=== PATIENT | female | born 1995 | race Two or more races ===

== ENCOUNTER 2024-03-06 18:14 | Observation (INO) | payer BC, SELFPAY ==
[2024-03-06 17:51] VITALS: RESP 16; RESP 99; TEMP 37.1
[2024-03-06 18:12] VITALS: BMI 37.3
[2024-03-06 18:21] VITALS: BP 115/72; PULSE 81
[2024-03-06 19:21] LABS: Collection Type, Urine Voided
[2024-03-06] MEDS: ACETAMINOPHEN 325 MG TABLET 650 MG PO (19:30)
[2024-03-06 19:36] LABS: Bilirubin,Urine Negative (Negative); Blood,Urine Negative (Negative); Clarity,Urine Clear (Clear/Hazy); Color,Urine Lt-Yellow (Lt Yel-Yel); Culture Indicated,Urine Not Indicated; Glucose, Urine Negative (Negative); Ketones,Urine Negative (Negative); Leukocyte Esterase,Urine Negative (Negative); Nitrite,Urine Negative (Negative); Protein,Urine Trace (Neg - Trace); RBC,Urine 5 /hpf (0-3); Specific Gravity,Urine 1.025 (1.001-1.035); Squamous Epithelial Cell,Urine 10 /hpf (0-5); Urobilinogen,Urine Negative mg/dL (0.0-1.0); WBC,Urine 3 /hpf (0-5)
[2024-03-06 20:02] VITALS: BP 113/71; PULSE 74
[2024-03-06 20:40] LABS: FFN Specimen Descripton Clr Colrless Aqueous; Fetal Fibronectin Negative (Negative)
== END 2024-03-06 21:03 | disposition home or self-care (01) ==
LOC: S4S1 18:14 → S4SX 18:14
PROVIDERS: Admitting Provider Specialist; Referring Provider Specialist; Visit Provider Specialist
DX: O26.892 Other specified pregnancy related conditions, second trimester (principal); R10.2 Pelvic and perineal pain; Z3A.27 27 weeks gestation of pregnancy
CPT/HCPCS: 59025; 59899; 81001; 82731; A9270

== ENCOUNTER 2024-03-14 19:06 | Outpatient (CLI) | payer BC, SELFPAY ==
[2024-03-14] VITALS (10 sets, daily range): BP systolic 128; BP diastolic 78; PULSE 77–92; RESP 18–97; TEMP 36.9; O2SAT 97–99; BMI 36.3
[2024-03-14] MEDS: BETAMET ACET/BETAMET NA PH (Celestone) 6 MG/ML VIAL 12 MG IM (20:23)
--- NOTE | 2024-03-14 21:00 | PC.NURSE ---
Patient discharged home with SOF. Vitals WNL. NST reactive. Patient given 1st dose of betamethasone at 2022. Patient given discharge instructions and precautions including reasons to return. Patient instructed to follow up with hospital for second dose of betamethasone tomorrow at 1999. Patient verbalizes understanding, all questions answered and encouraged.
== END 2024-03-14 20:28 | disposition home or self-care (01) ==
LOC: S4S1 19:07 → S4SX 19:08
PROVIDERS: Referring Provider Specialist; Visit Provider Specialist
DX: Z34.03 Encounter for supervision of normal first pregnancy, third trimester (principal); Z36.89 Encounter for other specified antenatal screening; Z3A.28 28 weeks gestation of pregnancy
CPT/HCPCS: 59025; 96372; J0702

== ENCOUNTER 2024-03-15 20:17 | Outpatient (CLI) | payer BC, SELFPAY ==
[2024-03-15 20:22] VITALS: BP 117/61; PULSE 96; RESP 18; RESP 98; TEMP 36.7
[2024-03-15 20:23] VITALS: BP 117/61; PULSE 94; PULSE 95; RESP 18; TEMP 36.7; O2SAT 97
[2024-03-15 20:25] VITALS: BMI 35.9
[2024-03-15 20:28] VITALS: PULSE 98; O2SAT 97
[2024-03-15 20:33] VITALS: PULSE 92; O2SAT 98
[2024-03-15 20:38] VITALS: PULSE 97; O2SAT 97
[2024-03-15] MEDS: BETAMET ACET/BETAMET NA PH (Celestone) 6 MG/ML VIAL 12 MG IM (20:44)
--- NOTE | 2024-03-15 21:11 | PC.NURSE ---
Patient discharged home with SOF. Vitals WNL. NST reactive. Patient given second dose of betamethasone at 2042. Patient given discharge education including precautions and reasons to return. Patient instructed to follow up with office on Sunday for follow up instructions. Patient verbalizes understanding, all questions answered and encouraged.
== END 2024-03-15 21:01 | disposition home or self-care (01) ==
LOC: CNST 20:18 → S4SX 20:19
PROVIDERS: Referring Provider Specialist; Visit Provider Specialist
DX: Z34.03 Encounter for supervision of normal first pregnancy, third trimester (principal); Z36.89 Encounter for other specified antenatal screening; Z3A.28 28 weeks gestation of pregnancy
CPT/HCPCS: 59025; 96372; J0702

== ENCOUNTER 2024-05-19 10:01 | Observation (INO) | payer BC, SELFPAY ==
[2024-05-19] VITALS (32 sets, daily range): BP systolic 111–119; BP diastolic 71–81; PULSE 68–98; RESP 18–99; TEMP 36.7; O2SAT 97–100; BMI 37.7
--- NOTE | 2024-05-19 11:09 | ESHP_ITS ---
RE: CORNELL REID : [id number] DATE OF ADMISSION: 05/19/2024 HISTORY OF PRESENT ILLNESS: This is a 28-year-old 1, para 0 with intrauterine at 38 weeks and 1 day who presents to labor and delivery for PIH evaluation. The patient was seen in the office today and was noted to have elevated blood pressures of 140s/90s. The patient reports swelling in her lower extremities. She denies any headache, change in vision or right upper quadrant pain. She denies any swelling in her face or hands. Her ultrasound today shows breech presentation. She has lost 1 pound since her last visit. Her urine protein is negative. She reports normal movement. She denies any leaking or bleeding. She reports occasional infrequent contractions. ALLERGIES: NO KNOWN DRUG ALLERGIES. MEDICATIONS: 1. multivitamin 1 tablet p.o. daily. 2. Omeprazole 20 mg 1 tablet p.o. daily p.r.n. heartburn. PAST MEDICAL HISTORY: Mild systolic hypertension, gastroesophageal reflux disease, threatened labor, receiving betamethasone on 03/14 and 03/15. SOCIAL HISTORY: She denies alcohol, drug use or smoking. : Noncontributory. REVIEW OF SYSTEMS: She denies any chest pain, palpitations, cough, fever, shortness of breath, or lower extremity pain. PHYSICAL EXAMINATION: VITAL SIGNS: Blood pressure 145/93, heart rate 88, respirations 18, temperature 98.2. HEENT: Oropharynx and sclerae are clear. LUNGS: Clear to auscultation bilaterally. HEART: Regular rate and rhythm. ABDOMEN: Gravid. Term size. Breech presentation. EXTREMITIES: Nontender. SKIN: No gross rashes or lesion. NEUROLOGIC: No focal deficit. ASSESSMENT: Intrauterine at 38 weeks and 1 day, borderline chronic hypertension, rule out superimposed preeclampsia, breech presentation. PLAN: Prolonged NST, PIH labs, remain n.p.o. Informed consent was obtained. The patient was made aware of the risks, complications, alternatives, and benefits of delivery. She agrees to proceed with delivery if needed. DT: 09:49:16 TT: 11:06:00 Ref: [id number] - TID: [id number]
[2024-05-19 11:51] LABS: Collection Type, Urine Clean Catch
[2024-05-19 12:00] LABS: Basophils % (Auto) 0 % (0-2.5); Eosinophils % (Auto) 0 % (0-10); Hematocrit 39.4 % (36.0-46.0); Immature Granulocytes % (Auto) 1 % (0-0); Immature Granulocytes Auto 0.05 Thou/mm3 (0.00-0.00); Lymphocytes # (Auto) 1.4 Thou/mm3 (1.0-4.8); Lymphocytes % (Auto) 15 % (10-50); Mean Corpuscular Hemoglobin 27.3 pg (25.0-35.0); Mean Corpuscular Volume 83 fL (80-100); Monocytes # (Auto) 0.6 Thou/mm3 (0.0-0.8); Monocytes % (Auto) 6 % (0-12); Neutrophils # (Auto) 7.4 Thou/mm3 (1.8-7.7); Neutrophils % (Auto) 78 % (37-80); Nucleated Red Blood Cell % 0 /100 WBC (0); Platelet Count 210 Thou/mm3 (140-440); RDW Standard Deviation 39.8 fL (36.4-46.3); Red Blood Count 4.77 Miln/mm3 (4.00-5.20); White Blood Count 9.5 Thou/mm3 (3.6-11.0)
[2024-05-19 12:03] LABS: Bilirubin,Urine Negative (Negative); Blood,Urine Negative (Negative); Clarity,Urine Clear (Clear/Hazy); Color,Urine Lt-Yellow (Lt Yel-Yel); Glucose, Urine Negative (Negative); Ketones,Urine Negative (Negative); Leukocyte Esterase,Urine Negative (Negative); Nitrite,Urine Negative (Negative); PH,Urine 6.5 (5.0-7.0); Protein,Urine Negative (Neg - Trace); RBC,Urine 2 /hpf (0-3); Specific Gravity,Urine 1.023 (1.001-1.035); Squamous Epithelial Cell,Urine 12 /hpf (0-5); Urobilinogen,Urine Negative mg/dL (0.0-1.0); WBC,Urine 3 /hpf (0-5)
[2024-05-19 12:15] LABS: Fibrinogen 470 mg/dL (175-375); INR 0.9 (0.9-1.3); Partial Thromboplastin Time 25.2 Seconds (22.0-36.0); Prothrombin Time 10.1 Seconds (9.0-12.2)
[2024-05-19 12:33] LABS: Alanine Aminotransferase 10 U/L (10-49); Albumin, Serum 3.6 gm/dL (3.5-5.0); Albumin/Globulin Ratio 1.4 (1.2-2.2); Alkaline Phosphatase 134 U/L (46-116); Anion Gap 10 (7-16); Aspartate Amino Transferase 14 U/L (0-34); BUN/Creatinine Ratio 12 Ratio (12-20); Bilirubin,Total 0.3 mg/dL (0.3-1.2); Blood Urea Nitrogen 7 mg/dL (9-23); Calcium 8.9 mg/dL (8.3-10.6); Calcium (Corrected) 9.2 mg/dL (8.5-10.1); Carbon Dioxide 20.5 mMol/L (20.0-31.0); Chloride 106 mMol/L (98-107); Creatinine (Component) 0.6 mg/dL (0.6-1.3); Estimated Creatinine Clearance 157.2 mL/min (>60); Globulin 2.6 gm/dL (2.3-3.5); Glucose 72 mg/dL (74-106); LDH (Lactate Dehydrogenase) 175 U/L (120-246); Osmolality,Calculated 268 (275-295); Potassium 3.8 mMol/L (3.4-5.1); Sodium 136 mMol/L (136-145); Total Protein 6.2 gm/dL (5.7-8.2); Uric Acid 4.6 mg/dL (3.1-7.8); eGFR > 60 See Note
[2024-05-19 13:12] LABS: Creatinine,Random Urine 88 mg/dL (30-125); Protein Total, Random Urine 22 mg/dL (1-14)
== END 2024-05-19 13:00 | disposition home or self-care (01) ==
PROVIDERS: Admitting Provider Specialist; Visit Provider Specialist
PROC: (CPT 59514; principal; 2024-05-26 07:30)
DX: O16.3 Unspecified maternal hypertension, third trimester (principal); Z3A.38 38 weeks gestation of pregnancy
CPT/HCPCS: 36415; 59025; 59899; 80053; 81001; 82570; 82575; 83615; 84156; 84550; 85025; 85384; 85610; 85730; 86850; 86900; 86901

== ENCOUNTER 2024-05-20 12:46 | Outpatient (CLI) | payer BC, SELFPAY ==
[2024-05-20 12:59] VITALS: BP 124/84; PULSE 81; RESP 16; RESP 96; TEMP 36.8; O2SAT 96; BMI 37.7
[2024-05-20 13:03] VITALS: BP 124/82; PULSE 80
[2024-05-20 13:18] VITALS: BP 126/80; PULSE 74
[2024-05-20 13:33] VITALS: BP 125/80; PULSE 78
[2024-05-20 13:34] LABS: Creatinine,Urine 129 mg/dL (30-125); Patient Height,Urine 63 Inches; Patient Weight,Urine 214 Pounds; Protein Total, Urine 23 mg/dL (1-14)
[2024-05-20 13:48] VITALS: BP 131/82; PULSE 83
[2024-05-20 13:55] LABS: Protein Total, 24 hr Urine 247 mg/24hr (<149); Protein Total, Urine Volume 1075 mL/24hr (600-1800)
[2024-05-20 13:56] LABS: Collection Time,Urine 24 Hours; Creatinine 24 Hour,Urine 1.4 gm/24hr (0.6-1.5); Total Volume,Urine 1075 mL (600-1800)
--- NOTE | 2024-05-20 14:05 | ESPR_ITS ---
Documentation for date of: 05/20/24 OB Labor Progress Note Assessment and Plan Comments: Joanie is a 28yo G1 with SIUP at 38&2wk presenting to L&D with completed 24hr urine protein kit for bp check. She had mild range bp in clinic yesterday which was first occasion in . CBC and CMP were normal. She notes no painful/regular ctx, no vaginal bleeding, no lof. Normal movement. She denies headache, vision changes and RUQ pain. Current : Receives care with Dr. Valle Breech presentation ROS pascual-negative Vitals wnl (normotensive), afebrile General: well developed, well nourished, no acute distress, conversant Cardiac: normal heart rate Lungs: breathing without distress Abdomen: soft, gravid, non-tender, no rebound or guarding NST: Reactive, +accels, no decels, mod carlos [place]: no regular ctx pattern Labs: 24hr urine total protein: 247mg Assessment: Joanie is a 28yo G1 with SIUP at 38&2wk presenting to L&D with completed 24hr urine protein kit for bp check. She has NO evidence of GHTN or pre-eclampsia at this time. Normotensive, benign exam. Reassuring status. Plan: -Continue routine follow up with Dr. Valle this week. Plan for delivery (breech presentation) per him. -Return precautions given Christy Russo MD
== END 2024-05-20 14:05 | disposition home or self-care (01) ==
LOC: S4S1 12:47 → S4SX 12:48
PROVIDERS: Referring Provider Obstetrics & Gynecology; Visit Provider Obstetrics & Gynecology
DX: Z34.03 Encounter for supervision of normal first pregnancy, third trimester (principal); Z36.89 Encounter for other specified antenatal screening; Z3A.38 38 weeks gestation of pregnancy
CPT/HCPCS: 59025; 82575; 84156

== ENCOUNTER 2024-05-26 05:25 | Inpatient (IN) | payer BC, SELFPAY ==
[2024-05-23 09:58] LABS: Basophils % (Auto) 0 % (0-2.5); Eosinophils # (Auto) 0.1 Thou/mm3 (0.0-0.5); Eosinophils % (Auto) 1 % (0-10); Hematocrit 40.6 % (36.0-46.0); Hemoglobin 13.3 g/dL (12.0-16.0); Immature Granulocytes % (Auto) 1 % (0-0); Immature Granulocytes Auto 0.07 Thou/mm3 (0.00-0.00); Lymphocytes # (Auto) 1.3 Thou/mm3 (1.0-4.8); Lymphocytes % (Auto) 16 % (10-50); Mean Corpuscular HGB Conc 32.8 g/dl (31.0-37.0); Mean Corpuscular Hemoglobin 27.2 pg (25.0-35.0); Mean Corpuscular Volume 83 fL (80-100); Monocytes # (Auto) 0.4 Thou/mm3 (0.0-0.8); Monocytes % (Auto) 5 % (0-12); Neutrophils # (Auto) 6.4 Thou/mm3 (1.8-7.7); Neutrophils % (Auto) 77 % (37-80); Nucleated Red Blood Cell % 0 /100 WBC (0); Platelet Count 206 Thou/mm3 (140-440); RDW Standard Deviation 40.4 fL (36.4-46.3); Red Blood Count 4.89 Miln/mm3 (4.00-5.20); White Blood Count 8.3 Thou/mm3 (3.6-11.0)
[2024-05-23 10:16] LABS: INR 0.9 (0.9-1.3); Partial Thromboplastin Time 24.8 Seconds (22.0-36.0); Prothrombin Time 9.8 Seconds (9.0-12.2)
[2024-05-23 10:21] LABS: Alanine Aminotransferase 10 U/L (10-49); Albumin, Serum 3.7 gm/dL (3.5-5.0); Albumin/Globulin Ratio 1.3 (1.2-2.2); Alkaline Phosphatase 145 U/L (46-116); Anion Gap 10 (7-16); Aspartate Amino Transferase 14 U/L (0-34); BUN/Creatinine Ratio 15 Ratio (12-20); Bilirubin,Total 0.3 mg/dL (0.3-1.2); Blood Urea Nitrogen 9 mg/dL (9-23); Calcium 9.2 mg/dL (8.3-10.6); Calcium (Corrected) 9.4 mg/dL (8.5-10.1); Carbon Dioxide 21.3 mMol/L (20.0-31.0); Chloride 107 mMol/L (98-107); Creatinine (Component) 0.6 mg/dL (0.6-1.3); Globulin 2.8 gm/dL (2.3-3.5); Glucose 110 mg/dL (74-106); Osmolality,Calculated 275 (275-295); Potassium 3.9 mMol/L (3.4-5.1); Sodium 138 mMol/L (136-145); Total Protein 6.5 gm/dL (5.7-8.2); eGFR > 60 See Note
[2024-05-23 10:29] LABS: Syphilis Nonreactive (Nonreactive)
[2024-05-26] VITALS (49 sets, daily range): BP systolic 100–138; BP diastolic 71–95; PULSE 68–105; RESP 12–22; TEMP 36–36.8; O2SAT 92–99; BMI 37.9
--- NOTE | 2024-05-26 05:27 | XR_ITS ---
Examination: age Limited Technique: Limited transabdominal sonographic images pelvis Exam date and time: May 26, 2024 0540 hrs. Indications: Labor evaluation, unknown presentation. Findings: Viable intrauterine gestation breech presentation Cardiac motion 141 BPM Impression: Viable intrauterine gestation breech presentation
--- NOTE | 2024-05-26 05:39 | PD.LDHP ---
Documentation for date of: 05/26/24 OB Labor/Induct. HPI History of Present Illness Comments: RE: CORNELL REID : [id number] DATE OF ADMISSION: 05/26/2024 HISTORY OF PRESENT ILLNESS: This is a 28-year-old 1, para 0 with intrauterine at 39 weeks and 1 day who presents to labor and delivery for PIH evaluation. The patient was seen in the office today and was noted to have elevated blood pressures of 140s/90s. The patient reports swelling in her lower extremities. She denies any headache, change in vision or right upper quadrant pain. She denies any swelling in her face or hands. Her ultrasound today shows breech presentation. She has lost 1 pound since her last visit. Her urine protein is negative. She reports normal movement. She denies any leaking or bleeding. She reports occasional infrequent contractions. ALLERGIES: NO KNOWN DRUG ALLERGIES. MEDICATIONS: 1. multivitamin 1 tablet p.o. daily. 2. Omeprazole 20 mg 1 tablet p.o. daily p.r.n. heartburn. PAST MEDICAL HISTORY: Mild systolic hypertension, gastroesophageal reflux disease, threatened labor, receiving betamethasone on 03/14 and 03/15. SOCIAL HISTORY: She denies alcohol, drug use or smoking. FAMILY HISTORY: Noncontributory. REVIEW OF SYSTEMS: She denies any chest pain, palpitations, cough, fever, shortness of breath, or lower extremity pain. PHYSICAL EXAMINATION: VITAL SIGNS: Blood pressure 145/93, heart rate 88, respirations 18, temperature 98.2. HEENT: Oropharynx and sclerae are clear. LUNGS: Clear to auscultation bilaterally. HEART: Regular rate and rhythm. ABDOMEN: Gravid. Term size. Breech presentation. EXTREMITIES: Nontender. SKIN: No gross rashes or lesion. NEUROLOGIC: No focal deficit. ASSESSMENT: Intrauterine at 39 weeks and 0 day, borderline chronic hypertension, rule breech presentation. PLAN: US to confirm presentation. The patient was made aware of the risks, complications, alternatives, and benefits of delivery. She agrees to proceed with delivery if US shows Breech presentation. Meds Home Medications and Allergies Home Medications ?Medication ?Instructions ?Recorded ?Confirmed ?Type [id number] 1 mg 1 tab PO QDAY 03/06/24 05/20/24 History tablet omeprazole 20 mg capsule,delayed mg 05/20/24 History release Allergies Allergy/AdvReac Type Severity Reaction Status Date / Time No Known Allergies Allergy Verified 05/26/24 05:31 OB Results Labs 05/23/24 08:49 05/23/24 08:49
[2024-05-26 06:15] LABS: Collection Type, Urine Clean Catch
[2024-05-26 06:18] LABS: Basophils % (Auto) 0 % (0-2.5); Eosinophils # (Auto) 0.1 Thou/mm3 (0.0-0.5); Eosinophils % (Auto) 1 % (0-10); Hematocrit 39.5 % (36.0-46.0); Hemoglobin 13.2 g/dL (12.0-16.0); Immature Granulocytes % (Auto) 1 % (0-0); Immature Granulocytes Auto 0.05 Thou/mm3 (0.00-0.00); Lymphocytes # (Auto) 1.6 Thou/mm3 (1.0-4.8); Lymphocytes % (Auto) 16 % (10-50); Mean Corpuscular HGB Conc 33.4 g/dl (31.0-37.0); Mean Corpuscular Hemoglobin 27.2 pg (25.0-35.0); Mean Corpuscular Volume 81 fL (80-100); Monocytes # (Auto) 0.7 Thou/mm3 (0.0-0.8); Monocytes % (Auto) 7 % (0-12); Neutrophils # (Auto) 7.3 Thou/mm3 (1.8-7.7); Neutrophils % (Auto) 75 % (37-80); Nucleated Red Blood Cell % 0 /100 WBC (0); Platelet Count 204 Thou/mm3 (140-440); RDW Standard Deviation 39.3 fL (36.4-46.3); Red Blood Count 4.85 Miln/mm3 (4.00-5.20); White Blood Count 9.7 Thou/mm3 (3.6-11.0)
[2024-05-26] MEDS: RINGERS LACTATED 1000 ML 1,000 ML 999 ML IV (06:33)
[2024-05-26 06:49] LABS: Bacteria,Urine Rare; Bilirubin,Urine Negative (Negative); Blood,Urine Negative (Negative); Color,Urine Yellow (Lt Yel-Yel); Glucose, Urine Negative (Negative); Ketones,Urine Negative (Negative); Leukocyte Esterase,Urine Positive (Negative); Nitrite,Urine Negative (Negative); Protein,Urine Trace (Neg - Trace); RBC,Urine 4 /hpf (0-3); Specific Gravity,Urine 1.025 (1.001-1.035); Squamous Epithelial Cell,Urine 30 /hpf (0-5); Urobilinogen,Urine Negative mg/dL (0.0-1.0); WBC,Urine 15 /hpf (0-5)
[2024-05-26] MEDS: FAMOTIDINE INJ 10 MG/ML VIAL 2 ML 20 MG IV (07:09)
[2024-05-26] MEDS: ceFAZolin/D5W 2 GM IV 2 GM/100 ML BAG IV (07:09)
[2024-05-26] MEDS: CITRIC ACID/SODIUM CITR 15 ML UDC (BICITRA) 30 ML PO (07:09)
[2024-05-26 07:17] LABS: Clarity,Urine Hazy (Clear/Hazy)
[2024-05-26 07:21] LABS: Alanine Aminotransferase 11 U/L (10-49); Albumin, Serum 3.6 gm/dL (3.5-5.0); Albumin/Globulin Ratio 1.5 (1.2-2.2); Alkaline Phosphatase 153 U/L (46-116); Anion Gap 10 (7-16); Aspartate Amino Transferase 14 U/L (0-34); BUN/Creatinine Ratio 17 Ratio (12-20); Bilirubin,Total 0.3 mg/dL (0.3-1.2); Blood Urea Nitrogen 10 mg/dL (9-23); Calcium 9.2 mg/dL (8.3-10.6); Calcium (Corrected) 9.5 mg/dL (8.5-10.1); Carbon Dioxide 22.6 mMol/L (20.0-31.0); Chloride 108 mMol/L (98-107); Creatinine (Component) 0.6 mg/dL (0.6-1.3); Globulin 2.4 gm/dL (2.3-3.5); Glucose 88 mg/dL (74-106); Osmolality,Calculated 279 (275-295); Potassium 4.1 mMol/L (3.4-5.1); Sodium 141 mMol/L (136-145); Uric Acid 5.3 mg/dL (3.1-7.8); eGFR > 60 See Note
[2024-05-26 07:21] LABS: Syphilis Nonreactive (Nonreactive)
--- NOTE | 2024-05-26 08:11 | PRELIM_ITS ---
Obstetric ultrasound dated May 26, 2024 at 0540 hours Clinical history: Confirm presentation. Technique: Real-time ultrasound was performed using Duplex scanning including arterial inflow, venous outflow, color and spectral Doppler analysis of both ovaries. Comparison: No prior study is available for comparison. Findings: There is a gravid uterus with a live fetus in breechpresentation of mean gestational age 39weeks and 1 day (by biometry). cardiac activity is present at a heart rate of 141beats per minute. Estimated due date by ultrasound is 06/01/2024. Impression: Gravid uterus with a single live fetus in breechpresentation of mean gestational age 39weeks 1day. Discussion Details: Results were verbally communicated to Hannah Crespo , charge nurse A callback number is provided to facilitate direct [id number] communication. Time of verbal communication 11 : 02 AM Report Electronically Signed By: Chao Schneider 05/26/2024 8:10:27 AM [EST]
[2024-05-26 08:26] LABS: INR 0.9 (0.9-1.3); Partial Thromboplastin Time 24.7 Seconds (22.0-36.0); Prothrombin Time 9.9 Seconds (9.0-12.2)
[2024-05-26 08:29] LABS: Fibrinogen 523 mg/dL (175-375)
[2024-05-26] MEDS: OXYTOCIN in NS 20 units 20 UNIT/1,000 ML BAG 125 UNIT IV ×2 (09:20→14:06)
[2024-05-26] MEDS: ACETAMINOPHEN IVPB 1,000 MG/100 ML VIAL 250 MG IV (09:30)
--- NOTE | 2024-05-26 09:33 | OBDSUM_ITS ---
Data ([facility]) Data Hx Section: No : 1 Para: 0 Term: 0 : 0 : 0 Delivery Data ([facility]) Labor Data ROM Date: 05/26/24 ROM Time: 08:27 Rupture Type: AROM Amniotic Fluid: Clear Delivery Data EDC: 06/02/24 EDC calculated by:: LMP/early US confirmation Labor Onset Stage 1 Date: 05/26/24 Labor Onset Stage 1 Time: 08: Labor Onset Stage 2 Date: 05/26/24 Labor Onset Stage 2 Time: 08: Delivery Date: 05/26/24 Delivery Time: 08: Gestational age (weeks): 39 Gestational age (days): 0 Placenta Delivery Date: 05/26/24 Placenta Delivery Time: 08: Delivered by: Milad Valle Delivery nurse: Alley Yates Other staff at delivery: Nursery Nurse Other staff at delivery: Sherley Santizo Delivery Method Delivery: Delivery Type: Primary Presentation: Ravindra Breech Anesthesia Type Primary Anesthesia: Spinal Delivery Room Medications Other Intrapartum Medications: Yes Placenta Placenta Delivery: Manual Placenta Cultures Obtained: No Placenta Sent for Examination: Yes Cord Sample: Cord Blood Obtained, Cord Gases Arterial and Cord Gases Venous EBL Estimated blood loss (ml): 700 Umbilical Cord Umbilical Vessels: 3 Nuchal Cord: x1 Body Cord: None Complications Complications: None [place] Data ([facility]) Data Infant Gender: Male Infant Weight Grams: 2990 1 Minute Total: 8 5 Minute Total: 9
--- NOTE | 2024-05-26 09:35 | ESDS_ITS ---
DS: Providers Provider Date of admission: 05/26/24 05:25 Primary care physician: Physician No Primary/Family Admitting Provider: Milad Valle MD Attending Provider on Admission: Milad Valle MD Attending Provider on DC: Milad Valle MD Discharging Provider: Milad Valle MD DS: Diagnosis Discharge Diagnosis (1) Breech presentation at : Status: Acute (2) delivery delivered: Status: Acute Problem List Completed Was Problem List Reviewed/Reconciled?: Yes Summary/Hosp Course Peripartum Data Delivery Method: Low Transverse complications: none 1: Gender: Male Disposition of : home Time Spent with Patient Time attestation: Total time spent providing and/or coordinating discharge services: Exam Vital Signs Temp Pulse Resp BP Pulse Ox 98.3 F 90 18 125/90 H 96 05/26/24 07:09 05/26/24 07:09 05/26/24 07:09 05/26/24 07:09 05/26/24 07:52 Discharge Plan Plan Patient Disposition: HOME (Self Care) Patient condition on transfer: Stable Prescriptions/Referrals Prescriptions/Med Rec: New ibuprofen 600 mg tablet 600 mg PO Q6H PRN (Reason: pain) Qty: 30 0RF No Action 1 mg Tablet 1 tab PO QDAY omeprazole 20 mg capsule,delayed release(DR/EC) 20 mg PO QDAY PRN (Reason: heartburn) Patient Comments: take 1 capsule by mouth once daily Referrals: No Primary/Family,Physician [Primary Care Provider] - Patient/Caregiver Discharge Instructions Discharge Activity: activity as tolerated Other Discharge Activity Instructions:: Follow up office 1 week. She already has a Rx for hydrocodone. Print Language: [place] Stand Alone Forms: [facility] Award Info., Patient Portal Info Letter Discharge Order Discharge Orders: Discharge (Routine); Ordered 05/28/24 Ordered By: Milad Valle Planned Discharge Date 05/28/24
--- NOTE | 2024-05-26 09:36 | PD.GYNPROC ---
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 She was placed in the dorsal supine position. She was prepped and draped in usual sterile fashion after a Colon catheter was placed. A timeout was performed. She received antibiotics and intermittent compression device was in place. A Pfannenstiel skin incision was made with a scalpel and carried through to the underlying layer fascia with the Bovie. The fascia was nicked the midline incision extended bilateral with the Bovie. The inferior aspect the fascia incision was grasped with Sebastien arms elevated the underlying rectus muscle dissected off with the Bovie. The rectus muscle was in the midline with the Bovie. The peritoneum was elevated between 2 Farfan clamps and uncharted with the Metzenbaum scissors.. The incision was extended superiorly and inferiorly with good realization of the bladder.. The vesicouterine peritoneum was incised transversely and the bladder flap created digitally. The low transverse incision was extended bilaterally digitally. The 's breech was present at the incision. With gentle uterine pressure and gently guiding the hips through the low transverse incision the hips delivered, the anterior and posterior shoulder then was delivered, the nuchal cord was reduced. The head was kept in the flexed position and gently delivered atraumatically through the lower transverse incision. The was handed off the waiting pediatric staff, Cord blood and gases were sent. Apgars were 8 and 9. The placenta was removed manually. The uterus was exteriorized and cleared of all clots and debris. The uterus was initially atonic despite Pitocin and Methergine was given which served to firm up the uterus. The uterine incision was closed with #1-0 chromic suture in a running locking fashion a second layer same suture was used imbricate the first layer obtain excellent hemostasis. The vesicouterine peritoneum was closed with 2-0 chromic catgut suture in running fashion. The fundus was firm , and the uterus was turned to the abdomen, the gutters were cleared of all clots and debris. The peritoneum was closed with 0 chromic suture in a running fashion. The muscle was closed with 0 chromic catgut suture in running fashion. The subfascial layer was found to be hemostatic and the fascia was closed with 0 Vicryl beginning at each angle in any center running fashion. The subcutaneous tissue was irrigated with normal saline solution and found to be hemostatic closed with 2-0 chromic catgut suture running fashion the skin was closed with 4-0 Monocryl. A Dermabond Prineo dressing was applied a sterile pressure dressing was applied she Toller procedure well counts were correct I discussed with the patient the nature of her condition intraoperative findings expectation for recovery all questions answered and dictation Dr. Nguyen thank for much Specimen: other (Placenta) Findings: Live male Apgars 8 and 9 Clear amniotic fluid Ravindra breech presentation Uterus ovaries and fallopian tubes grossly within normal limits EBL 700cc Complications: other (Uterine atony responding to Pitocin and Methergine. ) Surgical staff Castro Monterroso SHOE REPAIRER Diagnosis Discharge Diagnosis (1) Breech presentation at : Status: Acute (2) delivery delivered: Status: Acute Problem List Completed Was Problem List Reviewed/Reconciled?: Yes
[2024-05-26 12:47] LABS: Basophils % (Auto) 0 % (0-2.5); Eosinophils % (Auto) 0 % (0-10); Hematocrit 41.6 % (36.0-46.0); Immature Granulocytes % (Auto) 1 % (0-0); Immature Granulocytes Auto 0.12 Thou/mm3 (0.00-0.00); Lymphocytes % (Auto) 6 % (10-50); Mean Corpuscular HGB Conc 33.7 g/dl (31.0-37.0); Mean Corpuscular Hemoglobin 27.2 pg (25.0-35.0); Mean Corpuscular Volume 81 fL (80-100); Monocytes # (Auto) 0.3 Thou/mm3 (0.0-0.8); Monocytes % (Auto) 2 % (0-12); Neutrophils # (Auto) 16.6 Thou/mm3 (1.8-7.7); Neutrophils % (Auto) 92 % (37-80); Nucleated Red Blood Cell % 0 /100 WBC (0); Platelet Count 206 Thou/mm3 (140-440); RDW Standard Deviation 38.5 fL (36.4-46.3); Red Blood Count 5.14 Miln/mm3 (4.00-5.20)
[2024-05-26] MEDS: RINGERS LACTATED 1000 ML 1,000 ML 100 ML IV (20:20)
[2024-05-26] MEDS: KETOROLAC INJ 30 MG/ML VIAL IVP (22:56)
[2024-05-27] VITALS: BP 123/78; PULSE 74; RESP 18; TEMP 36.4; O2SAT 96
[2024-05-27 03:30] VITALS: BP 109/69; PULSE 59; RESP 16; TEMP 36.7; O2SAT 96
--- NOTE | 2024-05-27 03:34 | PD.LDPPPRG ---
Subjective Subjective Interval history: Patient denies any problem or complaint. She is voiding and ambulating and tolerating a regular diet. She denies any excessive vaginal bleeding. She denies any chest pain palpitation shortness of breath or lower extremity pain. She denies any depression or anxiety. Exam Vital Signs Temp Pulse Resp BP Pulse Ox O2 Del Method 98.0 F 59 L 16 109/69 96 Room Air 05/27/24 03:30 05/27/24 03:30 05/27/24 03:30 05/27/24 03:30 05/27/24 03:30 05/27/24 03:30 Routine Respiratory Exam Comments: Clear to auscultation bilaterally Routine Cardiovascular Exam Comments: Regular rate and rhythm Routine Abdominal Exam Comments: Nondistended, fundus is firm. Dressing dry and intact Routine Extremities Exam Comments: Nontender or edema. Objective Labs 05/26/24 12:09 05/26/24 05:55 Labs: Laboratory Results - last 24 hr 05/26/24 05/26/24 05/26/24 05:55 06:02 12:09 WBC 9.7 18.0 H D RBC 4.85 5.14 Hgb 13.2 14.0 Hct 39.5 41.6 MCV 81 81 MCH 27.2 27.2 MCHC 33.4 33.7 RDW Std Deviation 39.3 38.5 Plt Count 204 206 Neut % (Auto) 75 92 H Lymph % (Auto) 16 6 L [place] % (Auto) 7 2 Eos % (Auto) 1 0 Baso % (Auto) 0 0 Neut # (Auto) 7.3 16.6 H Lymph # (Auto) 1.6 1.0 [place] # (Auto) 0.7 0.3 Eos # (Auto) 0.1 0.0 Baso # (Auto) 0.0 0.0 Immature Gran # (Auto) 0.05 H 0.12 H Absolute Nucleated RBC 0.00 0.00 Immature Gran % 1 H 1 H Nucleated RBC % 0 0 PT 9.9 INR 0.9 APTT 24.7 Fibrinogen 523 H Sodium 141 Potassium 4.1 Chloride 108 H Carbon Dioxide 22.6 Anion Gap 10 BUN 10 Creatinine 0.6 Estim Creat Clear Calc 218.0 eGFR > 60 BUN/Creatinine Ratio 17 Glucose 88 Calculated Osmolality 279 Uric Acid 5.3 Calcium 9.2 Corrected Calcium 9.5 Total Bilirubin 0.3 AST 14 ALT 11 Alkaline Phosphatase 153 H Total Protein 6.0 Albumin 3.6 Globulin 2.4 Albumin/Globulin Ratio 1.5 Ur Collection Type Clean Catch Urine Color Yellow Urine Clarity Hazy Urine pH 6.0 Ur Specific [place] 1.025 Urine Protein Trace Urine Glucose (UA) Negative Urine Ketones Negative Urine Blood Negative Urine Nitrite Negative Urine Bilirubin Negative Urine Urobilinogen (Auto) Negative Ur Leukocyte Esterase Positive Urine RBC 4 H Urine WBC 15 H Ur Squamous Epith Cells 30 H Urine Bacteria Rare Syphilis Serology Nonreactive Blood Type B Positive Antibody Screen NEGATIVE Blood Bank Wristband ID Yes Assessment & Plan Problem List (1) Breech presentation at : Status: Acute (2) delivery delivered: Status: Acute Assessment and plan: Remove dressing DC IV Encourage ambulation support Possible discharge home tomorrow Time Spent With Patient Time: Total time spent is greater than 50% in coordination of care (as documented) at patient's floor/unit and/or counseling patient:
[2024-05-27] MEDS: KETOROLAC INJ 30 MG/ML VIAL IVP (07:38)
[2024-05-27 08:00] VITALS: BP 109/69; PULSE 103; RESP 18; TEMP 36.3; O2SAT 99
[2024-05-27 10:04] VITALS: BP 109/69; PULSE 103; RESP 18; TEMP 36.8; O2SAT 99
[2024-05-27] MEDS: IBUPROFEN TAB 400 MG TABLET 800 MG PO ×2 (12:19→23:21)
[2024-05-27] MEDS: HYDROcodone/APAP 5/325 TABLET 1 TAB PO (15:06)
[2024-05-27 16:20] VITALS: BP 102/70; PULSE 90; RESP 17; TEMP 36.7; O2SAT 97
[2024-05-27 19:20] VITALS: BP 128/77; PULSE 100; RESP 18; TEMP 36.9; O2SAT 98
[2024-05-27] MEDS: HYDROcodone/APAP 5/325 TABLET 2 TAB PO (19:20)
[2024-05-28 03:20] VITALS: BP 110/69; PULSE 87; RESP 18; TEMP 36.8; O2SAT 96
[2024-05-28] MEDS: HYDROcodone/APAP 5/325 TABLET 2 TAB PO (07:27)
[2024-05-28 07:30] VITALS: BP 129/83; PULSE 91; RESP 16; TEMP 36.9; O2SAT 98
--- NOTE | 2024-05-28 09:05 | ESPR_ITS ---
RE: CORNELL REID : [id number] DATE OF SERVICE: 05/28/2024 SUBJECTIVE: Postop day #2, the patient denies any problem or complaint. She is voiding. She is ambulating. She is tolerating diet. She is passing flatus. She denies any excessive vaginal bleeding. She denies any dizziness or lightheadedness. She denies any chest pain, palpitations, shortness of breath, or lower extremity pain. She denies any depression or anxiety. OBJECTIVE: Vital Signs: Blood pressure 110/69 mmHg, heart rate 87, respirations 18, temperature 98.2, pulse oximetry is 96% on room air. Lungs: Clear to auscultation bilaterally. Heart: Regular rate and rhythm. Abdomen: Incision clear and intact, nondistended. Fundus is firm. Extremities: Nontender. ASSESSMENT: Postop day #2 status post delivery. PLAN: Discharge home. Discharge instructions given. Follow up in the office in 1 week. DT: 07:44:27 TT: 09:04:00 Ref: [id number] - TID: [id number]
[2024-05-28] MEDS: IBUPROFEN TAB 400 MG TABLET 800 MG PO (10:43)
== END 2024-05-28 11:40 | disposition home or self-care (01) | DRG 788 ==
LOC: S4SX 06:34 → S4NX 08:06
PROVIDERS: Admitting Provider Specialist; Visit Provider Obstetrics & Gynecology
DX: O32.1XX0 Maternal care for breech presentation, not applicable or unspecified (principal); Z37.0 Single live birth; Z3A.39 39 weeks gestation of pregnancy; O69.81X0 Labor and delivery complicated by cord around neck, without compression, not applicable or unspecified; O62.2 Other uterine inertia
CPT/HCPCS: 36415; 76815; 80053; 81001; 84550; 85025; 85384; 85610; 85730; 86780; 86850; 86900; 86901; J0131; J0689; J1100; J1885; J2210; J2274; J2371; J2590; J3010; J3490; J7120; A9270; J2270

== ENCOUNTER 2024-05-29 09:11 | Outpatient (AMBR) | payer BC, SELFPAY ==
--- NOTE | 2024-05-29 16:12 | LAC.VISIT ---
Assessment Alternative Milk Expression Alternative Milk Expression Alternative Method Used: Yes Method Used: Pumping Alternative Method Comment: mom still pumping in order to supplement baby, mom is post and does not have transition milk yet. using pumping in order to help transition her milk Alternative Method Used Reason: Stimulation and Poor Feeding Alternative Method Produced Milk / Colostrum: Yes Production Amount: 30 Production ounces or mls: mls Pump Used: Electric Pumping Frequency Per Day: 5 LAC Assessment Breast Feeding Assessment Date of : 05/26/24 Current Age of baby: 4 (days) Weight: 3129.787 g Current weight of baby: 2902.991 g [place] # of Stool voids in last 24 hrs: 6 Stool Size: Medium Color of Stools: green [place] # of Urine voids in last 24 hrs: 12 Color of Urine: yellow Breast Feeding Ability: Fair [place] Complications: Weight loss Complications Comment: tufter wants supplementation due to 8.5% weight loss in hospital. Activity Level: Awake / Alert and Rooting [place] Muscle Tone: With In Normal Limits [place] Suck Quality: Areolar Compression and Rhythmic Effective [place] Suck: Yes [place] Swallow: Audible and Observed Jaw: With In Norml Limits Lip Seal: Good Feeding Posistion: Cross Cradle Additional Latch or Posistion Assistance Needed: Minimal Breast Feeding Comment: mom has extremely large breasts so it makes it hard for mom to hold baby and breast since it will fall into babys breathing space. showed mom football hold but she states she feels most comfortable in the cradle hold. noticed in this position that baby slides of nipple because moms breast is so heavy it weighs down the latch and baby can not keep good latch. mom has to readjust and relatch baby. Pre Weight (before feeding): 2902.991 g Post Weight (post feeding): 2925.671 g % gained or lost: 1% Gain LAC Intervention Interventions Tools: Pump and Aid Other Tools: mom using SNS when at home to assist with more milk without using a bottle Techniques Discussed: Latch, Position and Pumping Discharge Follow Up Appointment Date and Time: June 05, 2024 Other Referral Made: No Feeding Preference at Discharge: Exclusive LAC Latch Score LATCH Score Latch: Repeat Attempt to Hold Nipple Audible Swallow: Spontaneous, Intermittent, Frequent Nipple Type: Everted After Stimulation Comfort: Soft, Nontender Hold: Minimal Assistance Needed Total Score: 8 OP DC Assessment Discharge Follow Up Appointment Date and Time: June 05, 2024 Other Referral Made: No Visit Complete?: Yes
== END 2024-06-11 23:59 | disposition home or self-care (01) ==
LOC: HODLAC 09:11
DX: Z39.1 Encounter for care and examination of lactating mother (principal)

== ENCOUNTER 2024-06-05 09:10 | Outpatient (AMBR) | payer BC, SELFPAY ==
--- NOTE | 2024-06-05 14:28 | LAC.VISIT ---
Assessment LAC Breast Assessment Breast Assessment Bilateral: Breast Assessment Comment: mom has very large breasts, which makes it hard for mom to hold baby comfortably and get baby on well. expressed to mom to look for better supportive bra to hold up breast while breast feeding, as well as technique with rolled up towel or small blanket to assist in elevating the breast so that latch is better and nipple is in better placement. LAC Assessment Breast Feeding Assessment Date of : 05/25/24 Current Age of baby: 11 (days) Current weight of baby: 2902.991 g Breast Feeding Ability: Fair Complications: Difficult Latch [place] Complications Comment: baby has tight upper lip and shows signs of possible tongue tie. he can latch on well but then slides off. mom stated that there have been several occurances that baby was on for 20-30 minutes came off asleep and then woke up shortly after they put him down to acting hungry again. Mom states shes worried about her milk supply. After watching baby yS at the breast I noticed that he was only doing a swallow about every 6-7 sucks, but he was very active and awake. After breaking mom's latch saw that he was only on the top half of the nipple. 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 So baby is latched to only half of the nipple only giving him half of the access to nipple holes. Explained to mom that she would need to assure that baby took the whole nipple into his mouth and stayed in that postion. With a lip and possible tongue tie this makes it difficult to keep baby on in order to get a good feed. Mom could see the difference in latch as well as seeing and hearing baby swallow more milk with 1:1 swallows as well as 2:1 swallows. she understand that she needs to get baby on with better latch to know that baby is swallowing and getting better milk transfer. Activity Level: Awake / Alert [place] Muscle Tone: With In Normal Limits [place] Suck Quality: Areolar Compression, Rhythmic and Tongue Cups Well Effective [place] Suck: Yes [place] Swallow: Audible and Observed [place] Jaw: Receding Lip Seal: Clicking and Tight Lips Feeding Posistion: Cross Cradle Additional Latch or Posistion Assistance Needed: Minimal Breast Feeding Comment: making sure mom used pillow or additional support to lift breast up so she has support and nipple is lifted, mom understood LAC Intervention Interventions Other Tools: mom has SNS from the hospital and will use this if student education specialist recommends supplemental feedings. mom would like to pump and use her own milk to supplement. she is pumping about 2-3 ounces at a pumping session. this is combined breasts Discharge Follow Up Appointment Date and Time: mom will call to schedule appointment for next week Other Referral Made: Yes LAC Latch Score LATCH Score Latch: Repeat Attempt to Hold Nipple Audible Swallow: Spontaneous, Intermittent, Frequent Nipple Type: Everted After Stimulation Comfort: Soft, Nontender Hold: Minimal Assistance Needed Total Score: 8 LAC Oral Assessment Oral Assessment Prenulum Level: Posterior Lip: Tight Upper Lip Palate: High Dental Referral made: Yes Oral Assessment Comment: referral to oral surgeon or dentist for consult OP DC Assessment Discharge Follow Up Appointment Date and Time: mom will call to schedule appointment for next week Other Referral Made: Yes Visit Complete?: Yes
== END 2024-06-11 23:59 | disposition home or self-care (01) ==
LOC: HODLAC 09:10
DX: Z39.1 Encounter for care and examination of lactating mother (principal)

== ENCOUNTER 2024-11-21 17:55 | Emergency (ER) | payer BC, SELFPAY ==
[2024-11-21 18:04] VITALS: BP 126/82; PULSE 89; RESP 16; TEMP 36.7; O2SAT 98; BMI 32.5
--- NOTE | 2024-11-21 18:32 | PD.EDWOUND ---
ED Wound/Laceration-RME/HPI General Chief Complaint: Wound/Laceration Stated Complaint: LAC L) INDEX FINGER Time Seen by Provider: 11/21/24 18:28 Arrival date/time: 11/21/24 17:55 29F with no significant PMH presents to ED with L index fingernail lac. Patient has not had a tetanus shot in the past 5 years. Limitations: no limitations Related Data Home Medications ?Medication ?Instructions ?Recorded ?Confirmed [id number] 1 mg 1 tab PO QDAY 03/06/24 05/26/24 tablet omeprazole 20 mg capsule,delayed 20 mg PO QDAY PRN heartburn 05/20/24 05/26/24 release Previous Rx's ?Medication ?Instructions ?Recorded ibuprofen 600 mg tablet 600 mg PO Q6H PRN pain #30 tabs 05/28/24 mupirocin 2 % topical ointment 1 applic topical BID 1 week #15 11/21/24 (Centany) grams Allergies Allergy/AdvReac Type Severity Reaction Status Date / Time No Known Allergies Allergy Verified 11/21/24 17:58 Review of Systems Review of Systems Systems Reviewed: All systems reviewed, normal except as documented Integumentary/Breasts Skin/Breast: Reports as per HPI and Reports skin pain Past Medical History Past Medical History NEUROLOGIC: Negative Neurological Disorders or Seizures CARDIAC: Negative Cardiac Disorders or Congestive Heart Failure RESPIRATORY: Negative Chronic Obstructive Pulmonary Disease (COPD) GASTROINTESTINAL: Negative Gastrointestinal Disorders GENITOURINARY: Positive Genitourinary Disorders (UTI); Negative Renal Disease REPRODUCTIVE: Negative Previous Pregnancies MUSCULOSKELETAL: Negative Musculoskeletal Disorders ENDOCRINE: Negative Endocrine Disorders, Diabetes Mellitus Type 1 or Diabetes Mellitus Type 2 HEMATOLOGIC: Negative Blood Disorders or Anemia OTHER HISTORY: Negative Autoimmune Disease, Falls, Blood Transfusions, Blood Transfusion Reaction, Anesthesia Reactions, Clostridium Difficile or Cancer Family History FAMILY HISTORY: Negative Family Psychiatric Problems, Family Respiratory Disorders, Family Cardiac Disorders, Family Gastrointestinal Problems, Family Cancer, Family Surgery or Family Anesthesia Reaction Surgical History SURGICAL: Negative Section Social History SMOKING STATUS: Never smoker ED Exam General Limitations: Present no limitations General appearance: Present alert and in no apparent distress Head Head exam: Present atraumatic Neck Neck exam: Present normal inspection, full ROM and trachea midline Chest Chest inspection: Present normal inspection and symmetric chest wall rise Extremities Exam Extremities exam: Present full ROM Expanded Upper Extremity Exam Hand exam: Present full ROM and laceration (L 1 cm superficial lac through index finger nail ) Neurological Exam Neurological exam: Present alert and oriented X3 Psychiatric Psychiatric exam: Present normal affect and normal mood Skin Skin exam: Present warm, dry, intact and normal color Course Quality Measures none Orders Category Date Time Status Wound Care NOW Care 11/21/24 18:30 Active TET,DIP/PERT AC (Adult)-Tdap [Boostrix Adult (Tdap) Med 11/21/24 18:30 Discontinued Vacc] 0.5 ml IMI .ONCE ONE Vital Signs Vital signs: Vital Signs Temperature 98.0 F 11/21/24 18:04 Pulse Rate 89 11/21/24 18:04 Respiratory Rate 16 11/21/24 18:04 Blood Pressure 126/82 11/21/24 18:04 Pulse Oximetry (%) 98 11/21/24 18:04 Oxygen Delivery Method Room Air 11/21/24 18:04 O2 at 98% on RA and NWLs Wound / Laceration MDM Narrative MDM Narrative:: 29F with no significant PMH presents to ED with L index fingernail lac. Patient has not had a tetanus shot in the past 5 years. Physical exam reveals superficial 1 cm lac through L index fingernail with minimal nail offset. Nail bed appears intact. ROM intact. Patient is afebrile, calm, and alert. Wound cleaned/irrigated, nail realigned and reinforced with skin glue and steri-strips. Tdap and topical ABX prophylaxis given. Patient data External records reviewed:: [facility] previous records Clinical information provided by:: patient Social determinants that could affect healthcare access:: none Patient has the following chronic illnesses:: none How is presenting disease/condition affected by chronic disease/condition?: no chronic disease Evaluation data The following diagnostics were reviewed and interpreted by me:: other (specify) (none) Lab and/or radiology exams considered but not ordered:: not ordered Interpretation Summary: n/a Medications / Prescriptions Medications or Prescriptions considered but not ordered:: ordered Medication administrations:: Medication Administration History Discontinued Medications Diphtheria/Tetanus/Acell Pertussis (Diphth,Pertuss(Acell),Tet Vac 0.5 Ml Syr- Adult) 0.5 ml IMi .ONCE ONE Stop: 11/21/24 18:31 above Consultations Consultation(s) initiated? (list below): No Diagnosis Wound Differential Diagnosis: laceration, abrasion, avulsion of skin and other (nail injury) Most likely diagnosis given after review of the tests above:: laceration, nail injury Admission Indicated Admission indicated?: not indicated Admission Request Was there a request for admission?: No Disposition Plan Disposition Plan: Discharge Discharge Attestation Discharge Attestation: The patient and all family members were given an opportunity to ask questions and understood the discharge instructions. Discharge instructions specifically effects, indications for sooner follow up or return to the emergency department, and the expected course of current diagnosis. Patient condition: Stable Discharge Plan Plan Patient Disposition: HOME (Self Care) Discharge Disposition comment: Stable Prescriptions/Referrals Prescriptions/Med Rec: New mupirocin [Centany] 2 % ointment 1 applic topical BID 7 Days Qty: 15 0RF No Action ibuprofen 600 mg tablet 600 mg PO Q6H PRN (Reason: pain) Qty: 30 0RF [id number] 1 mg Tablet 1 tab PO QDAY omeprazole 20 mg capsule,delayed release(DR/EC) 20 mg PO QDAY PRN (Reason: heartburn) Patient Comments: take 1 capsule by mouth once daily Problem List Clinical Impression: Laceration, Injury of nail Patient/Caregiver Discharge Instructions Education Materials: ED Laceration Hand with ... Additional Instructions: Please follow-up with PCP within 24-48 hours and return immediately if symptoms worsen. Try to keep fingernail clean and dry. Use prescribed ABX cream around wound. Try not to disturb glue. Print Language: [place] Stand Alone Forms: Patient Portal Info Letter JULES/BELINDA Supervising Physician JULES/BELINDA Supervising Physician: Dr. Joy
[2024-11-21] MEDS: DIPHTH,PERTUSS(ACELL),TET VAC 0.5 ML SYR- ADULT IMi (19:11)
== END 2024-11-21 19:32 | disposition home or self-care (01) ==
LOC: SERX 19:18
PROVIDERS: Emergency Provider Emergency Medicine
DX: S61.211A Laceration without foreign body of left index finger without damage to nail, initial encounter (principal); W45.8XXA Other foreign body or object entering through skin, initial encounter
CPT/HCPCS: 90715; 99284